=== PATIENT | female | born 1955 | race Asian ===

== ENCOUNTER 2018-12-16 10:34 | Day surgery (SDC) | payer OTHER ==
[~2018-12-16] VITALS: Ht 152.4 cm; Wt 54.4 kg
[2018-12-16] MEDS ORDERED: fentaNYL 0.05 MG/ML VIAL ONE (12:39)
[2018-12-16] MEDS ORDERED: LIDOCAINE 2% 100 MG/5 ML UJET TP ONE (12:39)
[2018-12-16] MEDS ORDERED: fentaNYL 0.05 MG/ML VIAL IVP ONE (13:00)
== END 2018-12-16 13:45 | disposition home or self-care (01) ==
LOC: MDS 10:34 → MMU 10:37 → MDS 13:45
PROVIDERS: ATTEND Internal Medicine Gastroenterology
DX: Z12.11 Encounter for screening for malignant neoplasm of colon (principal); K57.30 Diverticulosis of large intestine without perforation or abscess without bleeding; I10 Essential (primary) hypertension; E11.9 Type 2 diabetes mellitus without complications; E78.00 Pure hypercholesterolemia, unspecified; Z79.84 Long term (current) use of oral hypoglycemic drugs; Z79.899 Other long term (current) drug therapy; Z85.3 Personal history of malignant neoplasm of breast; Z90.11 Acquired absence of right breast and nipple
CPT/HCPCS: 45378; J3010